=== PATIENT | male | born 1975 | race Caucasian/White ===

== ENCOUNTER 2016-12-12 14:21 | Emergency (ER) | payer MEDICAID ==
[2016-12-12 14:25] VITALS: BP 146/98
== END 2016-12-12 19:04 | disposition home or self-care (01) ==
LOC: ED 14:21
DX: Z48.01 Encounter for change or removal of surgical wound dressing (principal); E11.9 Type 2 diabetes mellitus without complications; Z79.84 Long term (current) use of oral hypoglycemic drugs

== ENCOUNTER 2020-06-07 20:44 | Emergency (ER) | payer MEDICAID ==
[~2020-06-07] VITALS: Ht 172.7 cm; Wt 98.4 kg
[2020-06-07 20:59] VITALS: BP 157/99; Ht 172.7 cm; Wt 98.4 kg
== END 2020-06-07 22:33 | disposition home or self-care (01) ==
LOC: ED 20:44
DX: L03.012 Cellulitis of left finger (principal); E11.9 Type 2 diabetes mellitus without complications; E78.00 Pure hypercholesterolemia, unspecified; E78.5 Hyperlipidemia, unspecified; Z88.0 Allergy status to penicillin